=== PATIENT | female | born 1990 | race Caucasian/White ===

== ENCOUNTER → 2017-07-28 21:32 | Outpatient (CLI) | payer MEDICAID, MEDICARE, SELFPAY ==
[2017-07-28 23:14] LABS: Chlamydia Trachomatis by PCR Negative (Negative); Neisserai gonorrhoeae by PCR Negative (Negative); Probe Check PASS; Sample Adequacy Control PASS; Specimen Processing Control PASS
[2017-07-31 10:22] LABS: HPV Reflexed? NOT INDICATED
== END ==
PROVIDERS: Visit Provider Obstetrics & Gynecology
DX: Z12.4 Encounter for screening for malignant neoplasm of cervix (principal); Z11.3 Encounter for screening for infections with a predominantly sexual mode of transmission
CPT/HCPCS: 87491; 87591; 88175; G0145

== ENCOUNTER → 2017-08-19 16:08 | Outpatient (CLI) | payer MEDICAID, SELFPAY ==
[2017-08-19 18:00] LABS: Absolute Lymphocyte Count 1.86 X10^3/ul (0.83-4.51); Absolute Neutrophil Count 8.6 X10^3/uL (2.0-7.7); Basophil# 0.02 X10^3/uL; Basophil% 0.2 % (0-1); Eosinophil# 0.06 X10^3/uL; Eosinophils% 0.5 % (0-5); Hematocrit 39.3 % (37-47); Lymphocyte # 1.86 X10^3/ul (4.0); Lymphocyte % 16.8 % (19-41); Mean Corp Hgb Conc 33.1 g/gl (32-36); Mean Corpuscular Hgb 29.9 pg (27.0-32.0); Mean Corpuscular Volume 90.3 fL (81-99); Mean Platelet Vol. 9.6 fl (6.2-12.0); Monocyte# 0.48 X10^3/uL; Monocyte% 4.3 % (0-10); Neutrophil # 8.61 X10^3/uL (2.7-7.7); Platelet Count 229 K/mm3 (150-450); RBC Distribution Width CV 12.5 % (11.6-14.6); RBC Distribution Width SD 41.1 fl (35.1-43.9); Red Blood Count 4.35 M/mm3 (4.2-5.4); White Blood Count 11.1 K/mm3 (4.4-11.0)
[2017-08-19 18:21] LABS: POSITIVE COUNT NO; POSITIVE DIFFERENTIAL NO; POSITIVE MORPHOLOGY NO
[2017-08-19 18:24] LABS: Color, Urine Yellow (Yellow); Glucose, Dipstick Normal (Normal); Ketone-Dipstick Negative (Negative); Leukocyte Esterase-Dipstick Negative /ul (Negative); Nitrite-Dipstick Negative (Negative); Occult Blood-Urine Negative /ul (Negative); Protein-Dipstick Negative (Negative); Specific Gravity, Urine 1.015 (1.002-1.030); Urine Bilirubin Dipstick Negative (Negative); Urine Clarity Sl. Cloudy (Clear); Urine Urobilinogen Normal (Normal)
[2017-08-19 18:25] LABS: Thyroid Stim Hormone (TSH) 1.65 uIU/mL (0.358-3.74)
[2017-08-19 18:45] LABS: Amphetamine Urine VISTA NEGATIVE (<1000 ng/mL); Barbiturate Urine VISTA NEGATIVE (< 200 ng/mL); Benzodiazepine Urine VISTA NEGATIVE (< 200 ng/mL); COTININE Drug Screen Positive (<200 ng/mL); Cocaine Urine VISTA NEGATIVE (< 300 ng/mL); Ecstacy Urine VISTA NEGATIVE (< 500 ng/mL); Methadone Urine VISTA NEGATIVE (< 300 ng/mL); PCP Urine VISTA NEGATIVE (< 25 ng/mL); THC Urine VISTA POSITIVE (< 50 ng/mL); Vista UDS pH Range 6
[2017-08-19 19:02] LABS: Rubella IgG 72.5 IU/mL
[2017-08-19 19:06] LABS: HIV - WCH Non-Reactive (Nonreactive)
[2017-08-21 01:09] LABS: Prenatal RPR NONREACTIVE (NONREACTIVE)
[2017-08-22 12:55] LABS: HEPATITIS B SURFACE AG Negative (Negative); Hep C Antibodies <0.1 s/co ratio (0.0-0.9); V-Zoster IgG (Immunity) < 135 index (Immune >165)
== END ==
PROVIDERS: Visit Provider Obstetrics & Gynecology
DX: Z34.82 Encounter for supervision of other normal pregnancy, second trimester (principal)
CPT/HCPCS: 36415; 80307; 81002; 84443; 85025; 86703; 86762; 86787; 86803; 87340

== ENCOUNTER → 2017-11-02 10:01 | Outpatient (CLI) | payer MEDICAID, SELFPAY ==
[2017-11-02 10:49] LABS: Hemoglobin 12.1 g/dl (12.0-15.0); Mean Corp Hgb Conc 33.6 g/gl (32-36); Mean Corpuscular Hgb 30.9 pg (27.0-32.0); Mean Corpuscular Volume 92.1 fL (81-99); Mean Platelet Vol. 9.4 fl (6.2-12.0); Platelet Count 209 K/mm3 (150-450); RBC Distribution Width CV 12.4 % (11.6-14.6); RBC Distribution Width SD 40.7 fl (35.1-43.9); Red Blood Count 3.91 M/mm3 (4.2-5.4); White Blood Count 11.4 K/mm3 (4.4-11.0)
[2017-11-02 10:50] LABS: Scan Indicated on CBC? Y/N NO
[2017-11-02 13:45] LABS: Glucose Challenge Gest 1H 50g 122 mg/dL (70-140)
== END ==
PROVIDERS: Visit Provider Obstetrics & Gynecology
DX: Z34.82 Encounter for supervision of other normal pregnancy, second trimester (principal)
CPT/HCPCS: 36415; 82950; 85027

== ENCOUNTER → 2017-12-31 15:33 | Outpatient (CLI) | payer MEDICAID, SELFPAY ==
[2017-12-31 18:04] LABS: Group B Strep DNA By PCR Negative (Negative); Internal Control PASS; Probe Check PASS; Specimen Processing Control PASS
== END ==
PROVIDERS: Visit Provider Obstetrics & Gynecology
DX: Z36.85 Encounter for antenatal screening for Streptococcus B (principal)
CPT/HCPCS: 87081; 87653

== ENCOUNTER 2018-02-02 03:15 | Inpatient (IN) | payer MEDICAID, SELFPAY ==
[2018-02-02] MEDS: Lactated Ringers 1,000 ML 50 ML IV ×3 (03:30→12:15)
[2018-02-02 04:11] LABS: Hematocrit 40.7 % (37-47); Hemoglobin 13.1 g/dl (12.0-15.0); Mean Corp Hgb Conc 32.2 g/gl (32-36); Mean Corpuscular Hgb 27.3 pg (27.0-32.0); Mean Platelet Vol. 9.6 fl (6.2-12.0); Platelet Count 248 K/mm3 (150-450); RBC Distribution Width CV 13.8 % (11.6-14.6); RBC Distribution Width SD 42.9 fl (35.1-43.9); Red Blood Count 4.79 M/mm3 (4.2-5.4); White Blood Count 13.9 K/mm3 (4.4-11.0)
[2018-02-02 04:12] VITALS: BMI 33.4
[2018-02-02 04:12] LABS: Scan Indicated on CBC? Y/N NO
[2018-02-02] MEDS: fentaNYL-bupivacaine (epidural) 100 ML BAG EPIDURAL ×2 (04:30→11:09)
[2018-02-02 06:19] LABS: Amphetamine Urine VISTA NEGATIVE (<1000 ng/mL); Barbiturate Urine VISTA NEGATIVE (< 200 ng/mL); Benzodiazepine Urine VISTA NEGATIVE (< 200 ng/mL); Cocaine Urine VISTA NEGATIVE (< 300 ng/mL); Ecstacy Urine VISTA NEGATIVE (< 500 ng/mL); Methadone Urine VISTA NEGATIVE (< 300 ng/mL); PCP Urine VISTA NEGATIVE (< 25 ng/mL); THC Urine VISTA NEGATIVE (< 50 ng/mL); Vista UDS pH Range 6
[2018-02-02 06:24] LABS: ROM Internal Control Test YES-OK TO RESULT pt. (Internal QC)
[2018-02-02 06:25] LABS: ROM Patient Test POSITIVE (Negative)
[2018-02-02] MEDS: Oxytocin 30 units/NS 500 ml 30 UNITS/500 ML IV.SOLN IV (12:16)
[2018-02-02] MEDS: Oxytocin 30 units/NS 500 ml 30 UNITS/500 ML IV.SOLN 334 UNITS IV (16:00)
--- NOTE | 2018-02-02 16:14 | PCM.OB.VAG ---
Vaginal Delivery Maternal Presentation: Active Labor, Spontaneous Rupture of Membranes [id number] with SROM and regular contractions. Amniotic Membrane Rupture Type: Spontaneous at home Rupture of Membrane time: 0200 Amniotic Fluid Description: Clear Final LUIS ALBERTO: 01/27/18 Final LUIS ALBERTO Source: US <20 weeks Gestational age: 40 Weeks and 6 Days Date of Procedure: 02/02/18 Pre-Operative Diagnosis: Labor Post-Operative Diagnosis: Labor Surgery/ Procedure Performed: Vacuum Assisted Vaginal Delivery Anesthesiologist: Vishnu Hidalgo Type of Anesthesia: Epidural Description of Procedure: Progressed to FD over 10 hours then pushed for 3 hpours to bring head to +2 station. Might one vacuum device placed but with one pull slipped off. Decision made to switch to Kiwi device. With 2 pulls over two contractions the head was delivered to the perineum then delivered with maternal pushing efforts. There was a loose cord around the neck x 1. After delivery the mouth was suctioned with a bulb suction. Delayed cord clamping was employed. The cord was clamped and cut. The placenta was delivered spontaneously intact. The uterus contracted well. Inspection revealed an intact cervix, upper vagina and perineum. A small posterior vagina first degree tear repaired with 2-0 Vicryl. Presentation: Vertex Placental Delivery Description: Spontaneous Placenta Disposition: [facility] Percentage of Placenta Abruption: 0 Cord Vessel Description: 3 Vessels Nuchal Cord Compression: Without compression Cord Entanglement: Around neck x 1, loose Estimated Blood Loss: 250cc A gender: Male (1 minute): 8 (5 minute): 9 Episiotomy Description: None Laceration: Midline, Vaginal Extension/lac, 1st degree Medications given after delivery: IV Pitocin Complications: None
[2018-02-02] MEDS: Oxytocin 30 units/NS 500 ml 30 UNITS/500 ML IV.SOLN 167 UNITS IV (16:30)
[2018-02-02] MEDS: Ibuprofen 600 MG Tablet PO ×2 (17:10→23:12)
[2018-02-02] MEDS: Acetaminophen 500 MG Tablet 1000 MG PO (18:05)
[2018-02-02 20:00] VITALS: BP 125/70; PULSE 73; RESP 16; TEMP 36.8; O2SAT 96
[2018-02-02 23:30] VITALS: BP 142/67; PULSE 62; RESP 16; TEMP 36.8; O2SAT 97
[2018-02-03 03:30] VITALS: BP 128/80; PULSE 71; RESP 16; TEMP 36.3; O2SAT 96
[2018-02-03] MEDS: Ibuprofen 600 MG Tablet PO ×3 (08:45→21:28)
[2018-02-03 08:55] VITALS: BP 139/80; PULSE 62; RESP 20; TEMP 36.6; O2SAT 97
--- NOTE | 2018-02-03 09:49 | PCM.PN.OB ---
Subjective: No specific complaints. Breast and bottle feeding. Bleeding supervisor packing. Objective: Afeb VSS - Physical Exam General: Alert, Oriented x3, Cooperative, No apparent distress Lungs: Clear to auscultation, Normal air movement Cardiovascular: Regular rate, Regular Rhythm Abdomen: Soft, Non Tender, Non-Distended, - - Fundus nontender Extremities: No edema Skin: No rashes Neurological: Neuro grossly intact Psych/Mental Status: Normal Affect Comment: Lochia light Vital Signs Temp Pulse Resp BP Pulse Ox 97.4 F L 71 16 128/80 H 96 02/03/18 03:30 02/03/18 03:30 02/03/18 03:30 02/03/18 03:30 02/03/18 03:30 Oxygen Delivery Method Room Air Weight: 177 lb Body Mass Index (BMI) 33.4 Intake and Output for Last 24 Hours 02/01/18 02/02/18 02/03/18 23:59 23:59 23:59 Output Total 300 / 300 Balance -300 / -300 Medical Necessity - Tobacco Use Smoking Status: Never smoker Assessment/Plan Doing well on PP day #1. Continue routine PP care.
--- NOTE | 2018-02-03 09:56 | PCM.DCVAG ---
Discharge Diet: No Restrictions Discharge Activity: Return to Normal Activity, May Drive, May Shower Return to work on:: 04/05/18 May resume sexual activity in: 4-6 weeks Call your doctor if your incision/area has: Sudden Increased Bleeding, Increased Pain/ Swelling, Foul Smelling Discharge Call your doctor if you observe: Fever of 101 or Higher, Inability to urinate, Inability to have a bowel movement, Using more than one pad per hour, Shortness of breath, Chest pain, Calf discomfort, Uncontrolled pain Cleanse incision/area with: Soap & Water Additional Instructions: If you experience any of the following, contact your healthcare provider. Bleeding that soaks a pad every hour for 2 hours Fever 100.4 or higher Unrelieved incision or abdominal pain Swelling, redness, discharge or bleeding from your incision or episiotomy site Your incision begins to separate Problems urinating (including inability to urinate or burning while urinating). Visual changes Severe headache Flu-like symptoms Pain or redness in one of both of your breasts Pain, warmth, tenderness or swelling in your legs, especially the calf area Frequent nausea and vomiting Symptoms of depression or anxiety If you experience any of the following, call 911 or go to the nearest Emergency Room. Chest pain Problems breathing Seizure activity Partial or complete paralysis of a body part, slurred speech, weakness or drooping of the face, or a sudden inability to walk or hold your balance Allergies/Adverse Reactions: Allergies No Known Allergies Allergy (Verified 02/02/18 03:58) Medications to take at Discharge Ibuprofen 600 mg PO 4X/DAY #30 tab 02/03/18 The following prescriptions were given: Ibuprofen 600 mg PO 4X/DAY #30 tab Please Follow Up With: Shawn Carey MD When: 6 weeks Primary Care Physician: Care Physician,No Primary [Primary Care Provider] - Test Results: Test results from this visit will be discussed in further detail at your follow-up appointment, if applicable. Proposed Discharge Date: 02/04/18
[2018-02-03] MEDS: Acetaminophen 500 MG Tablet 1000 MG PO ×2 (11:01→19:01)
[2018-02-03 13:10] VITALS: BP 132/72; PULSE 80; RESP 18; TEMP 36.7; O2SAT 97
--- NOTE | 2018-02-03 16:22 | CASEMGMT ---
Social Work Note Labor and Delivery Unit Notified by nursing staff of social work consult related to mother of baby (MOB) being a first time mom, assess for resource needs, and history of positive drug screen for marijuana earlier in the . Chart reviewed. Spoke with RN Britt Schulz who reports MOB is transitioning from breast to formula feeding today. RN reports MOB was tearful at one point this afternoon. RN reports there are visitors in with MOB this afternoon. Plan: Will plan to see MOB in the morning on 01-14-18 for assessment, support, and resources as indicated. -JON Beltran, CONVERTER SKIMMER
[2018-02-03 16:55] VITALS: BP 120/70; PULSE 65; RESP 18; TEMP 36.9; O2SAT 99
[2018-02-03 19:16] LABS: Hemoglobin 10.7 g/dl (12.0-15.0); Mean Corp Hgb Conc 31.5 g/gl (32-36); Mean Corpuscular Hgb 26.8 pg (27.0-32.0); Mean Corpuscular Volume 85.2 fL (81-99); Mean Platelet Vol. 9.4 fl (6.2-12.0); Platelet Count 200 K/mm3 (150-450); RBC Distribution Width CV 14.1 % (11.6-14.6); RBC Distribution Width SD 43.6 fl (35.1-43.9); Red Blood Count 3.99 M/mm3 (4.2-5.4); White Blood Count 17.1 K/mm3 (4.4-11.0)
[2018-02-03 19:17] LABS: Scan Indicated on CBC? Y/N NO
--- NOTE | 2018-02-03 19:58 | NURSING ---
While caring for this patient today - she became tearful following discussion over use of formula vs. . Pt. told she would be supported however she chose to feed baby, and to call if/when more formula was needed, or if she wanted assistance with from so that we could check her latch. To this nurse's knowledge, pt. did not attempt to breastfeed again this shift. Pt. also noted to be tearful toward the end of my shift. Discussed baby blues vs. depression with pt, and pt. states no, it's other stuff. But didn't elaborate. Family at bedside, appears supportive. Pt. states she is very tired, has not slept in 2 nights, and needs to get some sleep. Discussed with pt. that if she was unable to get sleep with in room, that she could contact nursing staff to check availability of nursing being with infant during that time. Pt. also reports that FOB may decide to watch him. All agreeable to this plan. Pt. continues to be tearful through report.
[2018-02-03 20:15] VITALS: BP 135/75; PULSE 66; RESP 16; TEMP 36.6; O2SAT 100
[2018-02-04 03:00] VITALS: BP 119/59; PULSE 62; RESP 16; TEMP 36.6
[2018-02-04] MEDS: Ibuprofen 600 MG Tablet PO ×2 (03:38→11:04)
--- NOTE | 2018-02-04 06:42 | PCM.PN.OB ---
Subjective: No specific complaints. Still unsure about breast feeding. Bleeding light Objective: Afeb VSS - Physical Exam General: Alert, Oriented x3, Cooperative, No apparent distress Lungs: Clear to auscultation, Normal air movement Cardiovascular: Regular rate, Regular Rhythm Abdomen: Soft, Non Tender, Non-Distended Extremities: No edema Skin: No rashes Neurological: Neuro grossly intact Psych/Mental Status: Normal Affect Comment: Lochia light Vital Signs Temp Pulse Resp BP Pulse Ox 97.8 F 62 16 119/59 L 100 02/04/18 03:00 02/04/18 03:00 02/04/18 03:00 02/04/18 03:00 02/03/18 20:15 Oxygen Delivery Method Room Air Weight: 177 lb Body Mass Index (BMI) 33.4 Intake and Output for Last 24 Hours 02/02/18 02/03/18 02/04/18 23:59 23:59 23:59 Output Total 300 / 300 Balance -300 / -300 Laboratory Tests Past 24 Hrs 02/03/18 19:00 WBC 17.1 H RBC 3.99 L Hgb 10.7 L Hct 34.0 L MCV 85.2 MCH 26.8 L MCHC 31.5 L RDW 14.1 RDW Differential 43.6 Plt Count 200 MPV 9.4 Medical Necessity - Tobacco Use Smoking Status: Never smoker Assessment/Plan Doing well on PP day#2. Cleared for discharge home today. Home going instructions and warnings given.
--- NOTE | 2018-02-04 06:43 | PCM.DC.SUM ---
Discharge Date and Diagnosis Date of Admission: 02/02/18 Date of Discharge: 02/04/18 - Primary Discharge Diagnosis s/p VAcuum assisted vaginal delivery Hospital Course and Treatment Consultations 02/02/18 03:45 Consult: Anesthesia Routine Comment: Reason For Exam: Operations: None Procedures: - - Pitocin augmentation, epidural, vacuum assisted vaginal delivery Summary of Care Provided: The patient is a 27 year old F [admitted in active labor progressed to 9 cm at which time labor stalled. Pitocin sugmentation added. Pushed for about 2 1/2 hours to bring head to +2 station. Vacuum assisted delivery was performed without complication. Post course unremarkable. Discharged home on PP day#2.] Discharge Diet: No Restrictions Discharge Activity: Return to Normal Activity, May Drive, May Shower Return to work on:: 04/05/18 May resume sexual activity in: 4-6 weeks Call your doctor if your incision/area has: Sudden Increased Bleeding, Increased Pain/ Swelling, Foul Smelling Discharge Call your doctor if you observe: Fever of 101 or Higher, Inability to urinate, Inability to have a bowel movement, Using more than one pad per hour, Shortness of breath, Chest pain, Calf discomfort, Uncontrolled pain Cleanse incision/area with: Soap & Water Home Medications: Medications to take at Discharge Ibuprofen 600 mg PO 4X/DAY #30 tab 02/03/18 Following Prescrptions Were Given to Patient: Ibuprofen 600 mg PO 4X/DAY #30 tab Primary Care Physician: Care Physician,No Primary [Primary Care Provider] - Please Follow Up With: Shawn Carey MD When: 6 weeks Disposition: Home Minutes spent on discharge:: 15 Patient Condition:: Good Medical Necessity - Tobacco Use Smoking Status: Never smoker Meaningful Use Info Meaningful Use Diagnoses (Choose all that apply): None applicable
[2018-02-04 08:00] VITALS: BP 125/61; PULSE 55; RESP 16; TEMP 36.4
--- NOTE | 2018-02-04 11:48 | CASEMGMT ---
Social Work Assessment Labor and Delivery Unit Date of Referral: 02/03/2018 Time of Referral: 829 Referred By: nursing staff Date of Intervention: 02/04/2018 Time of Intervention: 1040 Reason for Referral: maternal marijuana use; first time mother History obtained from: Medical record, patient/mother of baby (MOB). Reported father of baby (FOB) present for part of conversation. Household composition: MOB and FOB live together in a home. Denies any safety issues or housing concerns. Patient's parent/guardian status: MOB is 27-year-old single female, involved with FOB Abdulkadir Sevilla for almost 3 years. MOB denies any form of abuse in relationship with FOB. Reading, Mehrdad Gandhi, is the first child for MOB and FOB together. FOB has 2 older children, Gustavo is 8 and Marcial is 10. MOB reports the older boys come to visit every weekend and then for 6 weeks during the summer. Medical History: MOB is G1, P0 to 1 after delivering Mehrdad. care started late at 17 weeks gestation. MOB reports did not know was until 14 weeks along when [facility]. Mehrdad born weighing 7 pounds 6 ounces, Apgars 8 and 9 at 1 and 5 minutes of life. Educational Status: MOB graduated high school. No reported issues with reading, writing, or learning comprehension. Financial Status: MOB works at [employer]. FOB reports in between jobs right now but has been making money by scrapping and brokering for a [employer] business. FOB reports plan to try to get into [employer]. Supplies: MOB and FOB report to have needed baby supplies including car seat, crib, pack-n-play, clothing, diapers, wipes, bottles, some samples of formula. MOB reports interest in a breast pump. Childcare/Caregiver(s): MOB, and then MOBs and FOBs mothers when MOB and FOB are working. Transportation: MOB denies any issues. Programs/Agencies Involved: [facility] for medical and plans to get WIC. Denies any other agency involvement. Agreed to take information on [facility] only. Children Services/Legal Issues: No reported or identified legal issues or history with children services. Behavioral Health Issues: Mental Health History: MOB initially denied any history of depression, anxiety, or other emotional health issue. MOB reports to be sensitive but that all women are sensitive. Later, MOB endorsed having some anxiety, usually related to medical conditions and pain. MOB reports as a teen when MOBs father and stepmother were MOB went to counseling. MOB denies any history, or current, thoughts, plans, intent, or attempts at suicide. Substance Use History: MOB reports history of drinking alcohol, usually wine, prior to knowledge. MOB hesitated and took time thinking about frequency of use. MOB reported drinking 2-3 times a week. Denies that any person has ever told MOB that concerned MOBs drinking was problematic, nor does MOB endorse ever thinking that drinking was a problem. MOB reports history of marijuana usage. MOB reports has had a medical marijuana card, but let this lapse during , as MOB was not sure if allowed while and did not want to drive to [place] to the dispensary. MOB reports to have the medical card due to a past hand injury causing MOB pain, which increases anxiety. MOB also states to have the card due to cramps. MOB unable to tell this narrative writer when the last use was, referencing that not sure when MOBs last clean drug test was, but that quit shortly after finding about about . MOB endorses smoking and edibles as forms of ingestion. MOB denies any other drug use prescribed or illicit, including heroin, cocaine, methamphetamines, or prescription narcotics. MOB does smoke tobacco but has been working on cessation. Family History: No family history reported or identified by MOB. Drug Screens: MOB positive for marijuana 3 and then negative at time of delivery on 02-02-18. Family/Social Stressors: [facility] record indicated early on that MOB was unsure if FOB was going to be involved. MOB reports to this narrative writer that this was MOBs mother encouraging MOB to be independent due to not being , and not to rely on FOB. MOB denies and abuse in relationship with FOB, and that the only stress is really about FOBs older children and navigating a relationship with someone who already has kids. Possible financial limitations, as FOB is not currently working a steady job but reports to get work scrapping. Support Systems: MOB reports to have a large family in the area willing to help. MOB reports FOBs mother is also willing to help. FOB reports that both sides of family will be there to help MOB and FOB out when needed. Depression/Shaken Baby/Safe Sleeping: Addressed safe sleeping and depression with both MOB and FOB. FOB able to give appropriate responses to safe sleeping. Handout on shaken baby prevention/tips on soothing baby given. ASSESSMENT: Talked with MOB and FOB together initially, and then with MOB alone, which FOB had not issue leaving and allowing for private time. During time together the FOB gave input, sometimes talking at the same time as MOB, both seeming to want to provide information. FOB was quiet however, when social sciences instructor looked only at MOB. Both MOB and FOB reported that baby is not sleeping for long periods of time. Baby woke up and fussed during social work visit, MOB picked baby up and held baby until baby fell asleep. This pattern occurred several times during social work visit. MOB was gentle with baby, gazed at baby, smiled and talked to baby in a loving way. MOB reports to feel a connection to baby and to love the baby. MOB and FOB both report to have needed supplies and adequate support at home going. Talked privately with MOB about domestic violence, which MOB denies, and about mental health history and patterns of substance use. MOB reports both she and FOB have had the medical marijuana card, though both let the card lapse considering MOB being and having to travel to [place] to the dispensary. MOB reports to be undecided about future use of marijuana. Educated MOB to breast feeding while using marijuana not being recommended. Talked with MOB about need to call Children services due to substance exposed infant, but that not sure if [facility] will open a case at this time. Educated that if the meconium drug screen comes back positive then a case would more certainly be opened for investigation. Answered MOBs questions about possible children service involvement. MOB did not have a lot to say but asked appropriate questions. MOB affect overall appropriate, but more constricted when talking about children services. MOB answered questions asked, was polite and cooperative. Identified Safe Plan of Care for baby: MOB reports not sure on intent to return to use of marijuana at this time. If returns to use, MOB reports would not use edibles. Would cut down on amount and frequency of use of marijuana. Would dilute down what is using so that not too sleepy and would be able to wake up if baby woke up (had reported would likely use at night when baby is sleeping). MOB reports could also take turns with FOB, so that one parent is not using. MOB reports could also call a parent to watch the baby. PLAN: MOB and baby to home at discharge, but will be calling [facility] Children Services due to substance exposed infant. . MOB and FOB provided with [facility] resource lists and information on [facility]. MOB plans to go to [facility] and states to have applications and paperwork ready to go. MOB has been given information on depression anxiety, resources and supports for this topic. Monitor for meconium drug screen. -GEOVANNA Beltran, SPORT INTERN
--- NOTE | 2018-02-05 13:45 | CASEMGMT ---
Social Work Note Labor and Delivery Unit Called [facility] ([facility]) at [phone] and spoke with Mona in the intake department. Referral given due to Substance Exposed infant as per positive maternal drug screen in August 2017, though negative a delivery and baby's urine negative at delivery. MOB did endorse using marijuana earlier in the . Brief maternal and infant histories provided, including MOB's reported safe plan of care for related to substance use. Let Mona know that waiting on meconium drug screens pending. No other services indicated other than waiting on meconium drug screen results. -JON Beltran, CHASSIS WIRER
== END 2018-02-04 11:45 | disposition home or self-care (01) | DRG 373 ==
PROVIDERS: Admitting Provider Obstetrics & Gynecology; Visit Provider Obstetrics & Gynecology
DX: O48.0 Post-term pregnancy (principal); Z3A.40 40 weeks gestation of pregnancy; O69.81X0 Labor and delivery complicated by cord around neck, without compression, not applicable or unspecified; O71.4 Obstetric high vaginal laceration alone; O99.334 Smoking (tobacco) complicating childbirth; Z37.0 Single live birth
CPT/HCPCS: 59025; 59050; 80307; 84112; 85027; 86850; 86900; J7120

== ENCOUNTER 2018-10-25 15:39 | Emergency (ER) | payer MEDICAID, SELFPAY ==
[2018-10-25 15:40] VITALS: BP 139/72; PULSE 61; RESP 18; TEMP 36.9; O2SAT 99; BMI 26.4
--- NOTE | 2018-10-25 15:42 | RAD_ITS ---
STUDY: X-RAY - LEFT FOOT CLINICAL: Female, 28 years old. Pain. Fall TECHNIQUE: 3 view(s) of the foot. COMPARISON: None. FINDINGS: Normal talus, calcaneus, and tarsal bones. Normal visualized subtalar, talonavicular, calcaneocuboid, tarsal and tarsometatarsal articulations. Normal metatarsi. Normal metatarsophalangeal joint of the great toe. Normal tibial and fibular sesamoid bones. Normal interphalangeal joint of the great toe. Normal phalanges of the great toe. Normal second through fifth metatarsophalangeal joints. Normal interphalangeal joints and phalanges of the lesser toes. The soft tissue structures are unremarkable. There is no demonstrated fracture. RAD/Foot min 3 Views IMPRESSION: Normal x-ray examination of the foot. Electronically Signed: Roderick Toledo MD at 16:10 EDT , Service support ,
--- NOTE | 2018-10-25 16:36 | ED.DEP ---
ED Disposition - Plan for ED Patient: Instructions: ED Sprain Foot Prescriptions: Ibuprofen [Motrin] 800 mg PO TID PRN PRN #20 tablet PRN Reason: Pain Referrals: Care Physician,No Primary [Primary Care Provider] -
--- NOTE | 2018-10-25 16:40 | ED.VISSUMM ---
- ER Visit Summary Date of Service: 10/25/18 Chief Complaint: Left foot pain History of Present Illness: The patient is a 28 F presenting with left foot pain. Patient states 2 days ago she rolled her left foot in a crack in patio concrete. She did not fall to the ground. She did not hit her head or lose consciousness. She is able to ambulate. She states Motrin has been helping. Denies other injuries. Physical Examination: Vitals are stable. Patient is afebrile. Alert no acute distress. HEENT exam is unremarkable. Lungs are clear and equal bilaterally. Heart is regular rate and rhythm. Extremities left lateral foot mild tenderness with ecchymosis. Ankle is nontender. Achilles tendon is nontender. Proximal fibula nontender. Normal pulses. Normal sensation. Skin is warm and dry. No focal neurologic deficit. Remainder of exam is unremarkable. Emergency Department Course and Treatment: X-ray left foot shows no acute process. She is given postop shoe and crutches. She is given prescription for Motrin. She is advised to follow-up with primary care physician. Advised return ED if worsening complaints. Disposition: Discharge home Impression: Left foot contusion This note was generated with [employer] dictation software. It may contain incorrect words, spelling, and punctuation that were not noted in review of the chart prior to signing ED Disposition - Plan for ED Patient: Instructions: ED Sprain Foot Prescriptions: Ibuprofen [Motrin] 800 mg PO TID PRN PRN #20 tablet PRN Reason: Pain Referrals: Care Physician,No Primary [Primary Care Provider] -
[2018-10-25 16:58] VITALS: PULSE 61; RESP 15; O2SAT 99
== END 2018-10-25 17:05 | disposition home or self-care (01) ==
LOC: ED 16:40
PROVIDERS: Emergency Provider Emergency Medicine
DX: S90.32XA Contusion of left foot, initial encounter (principal); X50.1XXA Overexertion from prolonged static or awkward postures, initial encounter; Y93.9 Activity, unspecified; Y92.9 Unspecified place or not applicable
CPT/HCPCS: 73630; 99284